=== PATIENT | female | born 1995 | race Caucasian/White ===

== ENCOUNTER 2018-10-28 06:33 | Observation (INO) ==
[2018-10-28] MEDS ORDERED: ceFAZolin 2 GM IV; once IV.SIG PRN (06:59)
[2018-10-28] MEDS ORDERED: Chlorhexidine Gluconate 2% 1 Pack (2 Cloths) TOPICAL ONE (07:04)
[2018-10-28] MEDS ORDERED: Metoprolol Tartrate 25 MG Tablet PO ONE (07:04)
[2018-10-28] MEDS ORDERED: methylPREDNISolone acetate 40 MG/ML VIAL ONE (07:14)
[2018-10-28] MEDS ORDERED: Gelatin Size 100 Topical Foam ONE (07:14)
[2018-10-28] MEDS ORDERED: Bupivacaine/Epinephrine PF Inj 0.5% 30 ML Vial ONE (07:14)
[2018-10-28] MEDS ORDERED: ceFAZolin 1 GM Premix Inj 0 GM/0 ML PIGGYBACK IV.SIG ONE (07:14)
[2018-10-28] MEDS ORDERED: Thrombin Topical Soln 5,000 UNIT Vial TOPICAL ONE (07:21)
[2018-10-28] MEDS ORDERED: fentaNYL Citrate Inj 250 MCG/5 ML Ampul ONE (07:25)
[2018-10-28 07:44] LABS: Baso # (Auto) 0.1 th/mm3 (0.0-0.2); Eos # (Auto) 0.1 th/mm3 (0.0-0.4); Eos % (Auto) 1.8 % (0.0-4.0); Hematocrit 36.4 % (35.0-46.0); Hemoglobin 12.5 gm/dL (11.6-15.3); Lymph # (Auto) 2.8 th/mm3 (1.0-4.8); Lymph % (Auto) 37.3 % (9.0-44.0); Mean Corpuscular HGB Conc 34.3 % (32.0-36.0); Mean Corpuscular Hemoglobin 31.1 pg (27.0-34.0); Mean Corpuscular Volume 90.6 fL (80.0-100.0); Mono # (Auto) 0.6 th/mm3 (0.0-0.9); Mono % (Auto) 7.9 % (0.0-8.0); Neut # (Auto) 3.9 th/mm3 (1.8-7.7); Platelet Count 327 th/mm3 (150-450); Red Blood Count 4.02 mil/mm3 (4.00-5.30); Red Cell Distribution Width 13.5 % (11.6-17.2); White Blood Count 7.5 th/mm3 (4.0-11.0)
[2018-10-28] MEDS ORDERED: Sodium Chlor 0.9% Inj 500 ML IV.SIG SCH (08:00)
[2018-10-28] MEDS ORDERED: Chlorhexidine Gluconate 2% 1 Pack (2 Cloths) TOPICAL SCH (09:00)
[2018-10-28] MEDS ORDERED: Morphine Sulfate Inj 2 MG/ML Vial IV.PUSH PRN (11:49)
[2018-10-28] MEDS ORDERED: Bisacodyl 10 MG Supp RECTAL PRN (11:49)
--- NOTE | 2018-10-28 11:57 | P.OP ---
Preoperative Diagnosis: L3-4, L4-5 disk herniations Postoperative Diagnosis: L3-4, L4-5 disk herniations Date of procedure: 10/28/18 Procedure: L3-4, L4-5 left hemilaminectomy, mesiofacetectomy, foraminotomy, microsurgical resection of the disk herniation Anesthesia: MOOKIE Surgeon: Reggie Muro MD Statistical Programmer Analyst: Maricruz Oneal Pathology: none sent Operation and Findings: INDICATIONS FOR THE SURGICAL PROCEDURE Ms Denton is a 22 year-old female who presented with intractable back pain and clinical evidence of L4, and L5 lower extremity radiculopathy. She was found to have a disk herniations causing significant stenosis with significant mass effect on the neural structures and exiting L4 and L5 nerve roots, which correlated with the clinical symptoms. The patient has failed maximum nonsurgical management including multiple modalities of conservative treatment as well as pain management interventions by an interventional pain specialist. A surgical decompression were indicated as a last resort. The [id number] details of the procedure, indications, alternatives, risks and potential complications were fully discussed with the patient. The patient fully understood. All the questions were answered. No guarantees were given. The patient voiced requesting the procedure and signed informed consents. The patient was offered the alternative of delaying the procedure and continuing with nonsurgical management. DETAILS OF THE SURGICAL PROCEDURE After the induction of general anesthesia, endotracheal intubation was performed. A Torres catheter, bilateral AALIYAH hose and sequential compression devices were placed and kept throughout the procedure. The patient was positioned prone on a Aayush table over a Zackary frame. All pressure points were carefully padded with eggcrate mattress. The eyes were tapped shut after ointment was applied by the anesthesiologist to prevent corneal abrasion. A Deneen hugger was placed over the exposed lower body to maintain control of the core body temperature. The lower lumbar region was prepped and draped in the usual sterile fashion. A spinal needle was placed at L3 for localization and an x-ray performed with a C-arm. A skin incision was made in the midline over the spinous processes L3-L5 with a #10 blade. Small subcutaneous bleeders were controlled with a bipolar and the dissection was carried out through the lumbar fascia exposing the spinous processes. A subperiosteal dissection was performed with a Urias elevator and a Bovie over the left spinous process lamina and facets. A microdiscectomy self- retaining retractor was placed on the incision and an x-ray was obtained with an instrument placed underneath the lamina. At this point in the procedure the operating microscope was draped in the usual sterile fashion and brought to the field. The rest of the surgical procedure was performed using microsurgical dissection technique with exception of the closure. Once the level was confirmed, a decompressive laminectomy was performed at L3-4 , L4-5 over the left side, using the TPS drill with an A 4mm drill bit. A medial facetectomy was performed and the superior free border of the ligamentum flavum was dissected with a ligament dissector and removed with a thin footplate 2 mm Kerrison The medial facetectomy allowed me to expose the L4, and L5 nerve roots, which were identified and followed towards its exit in the foramen. Epidural veins located laterally to the dural sac were coagulated with a bipolar and incised with microscissors. Gentle medial retraction of the dural sac allowed inspection of the disc space. The patient had disc herniation with extrusion at both levels, causing mass effect over the exiting nerve roots. The annulus fibrosus of each disc was coagulated with the bipolar and incised with an 11 blade. The extruded disc was carefully dissected from the surrounding tissue and removed with pituitary forceps. Then, a microdiscectomy was carried out in the standard fashion using straight and up-biting pituitary forceps. A good decompression of the dural sac and nerve root was achieved. The exit of the nerve root was inspected for residual disc fragments and hemostasis was secured with the bipolar. The incision was irrigated with a large amount of saline solution. A Valsalva maneuver failed to show any cerebrospinal fluid leak or bleeding. The decompression was assessed again and found to be satisfactory. The incision was then closed in layers. The fascia was closed with 0 Vicryl sutures in an interrupted fashion. The superficial fascia was closed with 0 Vicryl sutures. The fascia was infiltrated with 0.5% Marcaine with epinephrine 1:100,000 dilution. The subcutaneous tissue was irrigated then closed with 0 Vicryl and 3 -0 Vicryl. The skin was closed with 4-0 running subcuticular Vicryl. Dermabond was applied to the skin. A sterile dressing was applied. At the end of the procedure, the sponge, needle and instrument counts were all correct. Estimated blood loss was less than 50 cc. No blood transfusion was given. No intraoperative complications occurred. The patient received prophylactic antibiotics. The patient was then extubated and transferred to the recovery room in stable condition.
[2018-10-28] MEDS: Sod Chloride 0.9% Inj 1,000 ML IV.CONT SCH ×2 (12:00→12:43)
[2018-10-28] MEDS ORDERED: fentaNYL Citrate Inj 100 MCG/2 ML Ampul ONE (12:24)
[2018-10-28] MEDS ORDERED: *Meperidine Inj 25 MG/ML Vial PERIprocedural Use ONLY ONE (12:34)
[2018-10-28] MEDS ORDERED: Artificial Tears Opth Drops 15 ML Bottle EACH EYE PRN (13:49)
--- NOTE | 2018-10-28 14:57 | XR ---
EXAM DATE: 10/28/2018 1:14 PM EST AGE/SEX: 22 years / Female INDICATIONS: Herniated disk, L3-4, L4-5, microdiscectomy. CLINICAL DATA: This is the patient's initial encounter. Patient reports that signs and symptoms have been present for 1 day and indicates a pain score of Nonresponsive. MEDICAL/SURGICAL HISTORY: None. None. COMPARISON: No prior exams available for comparison. FINDINGS: 2 images have been submitted. The first image has a probe directed towards the L3-4 disc level. The s econd image has the probe directed towards the L4-L5 level. CONCLUSION: 2 lateral lumbar spine images as described above. Electronically signed by: Judd Sierra MD 10/28/2018 2:56 PM EST
[2018-10-28] MEDS ORDERED: Balanced Salt Opth Irrigation 15 APPLIC/15 ML Bottle ONE (17:47)
[2018-10-28] MEDS ORDERED: Tetracaine 0.5% Opth Drops 4 ML Bottle ONE (17:48)
[2018-10-28] MEDS: ceFAZolin 2 GM Premix Inj 2 GM/50 ML PIGGYBACK IV.SIG SCH (17:56)
[2018-10-28] MEDS ORDERED: Balanced Salt Opth Irrigation 15 APPLIC/15 ML Bottle LEFT EYE ONE (18:00)
[2018-10-28] MEDS ORDERED: Tetracaine 0.5% Opth Drops 4 ML Bottle LEFT EYE ONE (18:00)
[2018-10-28] MEDS: Senna/Docusate Sodium 8.6/50 MG Tablet PO SCH (20:20)
[2018-10-29] MEDS: ceFAZolin 2 GM Premix Inj 2 GM/50 ML PIGGYBACK IV.SIG SCH ×2 (01:42→09:25)
[2018-10-29] MEDS: Senna/Docusate Sodium 8.6/50 MG Tablet PO SCH (08:26)
[2018-10-29 09:30] LABS: Bacteria,Urine Rare /hpf; Bilirubin,Urine Negative (Negative); Clarity,Urine Clear (Clear); Color,Urine Straw (Yellw/Straw); Glucose,Urine (UA) Negative (Negative); Leukocyte Esterase,Urine Negative (Negative); Nitrite,Urine Negative (Negative); Specific Gravity,Urine 1.005 (1.002-1.035); Squamous Epithelial Cell,Urine <1 /hpf (0-5)
[2018-10-29] MEDS ORDERED: Erythromycin 0.5% Opth Oint 3.5 GM Tube LEFT EYE PRN (11:25)
--- NOTE | 2018-10-29 11:33 | P.CON ---
History of Present Illness Service: Ophthalmology Reason for Consult: left eye pain Primary Care Provider: No Primary Care Physician History of Present Illness: 22 yo F 1 day s/p back surgery. Ophthalmology consulted due to patient having extreme pain, FB sensation in left eye after waking up from anesthesia yesterday. They gave her some drops and ointment yesterday and patched the left eye shut. Today she states the eye feels much better. No ocular history. PMF - History History Provided By: Patient - Medical History Medical History: Medical History (Last Reviewed 10/28/18 @ 07:11 by Aubree Montelongo) Back pain History of wisdom tooth extraction Racing heart beat Radiculopathy - Tobacco History Second Hand Smoke Exposure: No Smoking Status: Never smoker Tobacco Type: Cigarettes - Alcohol History How Often Do You Have a Drink Containing Alcohol: Monthly or less - Substance Use History Substance History: No History of Abuse - Travel History Recent Travel in the [place] Within the Last 8 Weeks: Yes Recent Travel Out of the Country Within the Last 8 Weeks: No Medications and Allergies Active Medications: Active Medications Hydrocodone Bitart/Acetaminophen ([place] 10/325) 1 tab PO Q4H PRN PRN Reason: PAIN 1-10 Last Admin: 10/29/18 08:25 Dose: 1 tab Al Hydroxide/Mg Hydroxide (Milk Of Magnesia Liq) 30 ml PO Q12H PRN PRN Reason: Mild Constipation Artificial Tears (Tears Naturale Opth Drops) 1 drop EACH EYE Q4H PRN PRN Reason: DRY EYE(S) Last Admin: 10/28/18 16:36 Dose: 1 drop Bisacodyl (Dulcolax Supp) 10 mg RECTAL DAILY PRN PRN Reason: SEVERE CONSITIPATION Chlorhexidine Gluconate (Chlorhexidine 2% Cloth) 1 pack TOPICAL DAILY ERICA Stop: 10/30/18 09:01 Sodium Chloride (Ns Inj) 500 mls @ 30 mls/hr IV.SIG .Q10H ERICA Last Admin: 10/28/18 18:39 Dose: Not Given Lactulose (Lactulose Liq) 30 ml PO DAILY PRN PRN Reason: SEVERE CONSITIPATION Miscellaneous Information (Misc Nursing Information) 1 each OTHER UNSCH PRN PRN Reason: SEE LABEL COMMENTS Stop: 10/29/18 12:10 Morphine Sulfate (Morphine Inj) 2 mg IV.PUSH Q2H PRN PRN Reason: Pain Scale 1 to 5 Last Admin: 10/28/18 20:25 Dose: 2 mg Ondansetron HCl (Zofran Inj) 4 mg IV.PUSH Q8H PRN PRN Reason: NAUSEA OR VOMITING Last Admin: 10/29/18 08:24 Dose: 4 mg Pantoprazole Sodium (Protonix) 40 mg PO DAILY [facility] Last Admin: 10/29/18 08:26 Dose: 40 mg Senna/Docusate Sodium (Claudine-Colace) 1 tab PO BID [facility] Last Admin: 10/29/18 08:26 Dose: 1 tab Sennosides (Senokot) 17.2 mg PO Q12H PRN PRN Reason: Moderate Constipation Allergies Allergy/AdvReac Type Severity Reaction Status Date / Time house dust Allergy Severe Sneezing Verified 10/28/18 07:11 prochlorperazine Allergy Severe Restlessnes Verified 10/28/18 07:11 [From Compazine] s promethazine [From Phenergan] Allergy Severe Restlessnes Verified 10/28/18 07:11 s Home Medications Medication Instructions Recorded Confirmed Type No Known Home Medications 10/24/18 10/28/18 History Physical Exam Vital signs: Vital Signs 10/28/18 12:11 10/28/18 12:15 10/28/18 12:30 Temperature 98 F Pulse Rate 103 H 95 H 93 H Respiratory Rate 20 15 13 Blood Pressure 134/74 129/75 126/65 Pulse Oximetry 97 96 96 10/28/18 12:45 10/28/18 12:54 10/28/18 13:00 Temperature 98.2 F Pulse Rate 92 H 93 H Respiratory Rate 14 15 Blood Pressure 126/67 119/64 Pulse Oximetry 97 96 97 10/28/18 13:09 10/28/18 15:10 10/28/18 19:05 Temperature 97.9 F 97.9 F Pulse Rate 92 H 92 H 90 Respiratory Rate 16 16 18 Blood Pressure 128/69 123/72 123/72 Pulse Oximetry 97 96 97 10/28/18 23:50 10/29/18 04:00 10/29/18 08:00 Temperature 98.3 F 98.9 F 97.9 F Pulse Rate 89 87 82 Respiratory Rate 17 17 18 Blood Pressure 123/76 110/65 124/75 Pulse Oximetry 97 96 99 Intake & Output 10/28/18 10/29/18 10/29/18 18:59 06:59 18:59 Intake Total 1700 / 1700 1466 / 1466 Output Total 460 / 460 650 / 650 Balance 1240 / 1240 816 / 816 Weight 59.1 kg 59.1 kg Intake: IV 100 / 100 746 / 746 NS Inj 1,000 ML @ 100 mls/hr IV 696 / 696 .CONT .Q10H ERICA Rx#:[id number] Ancef 2 GM Premix Inj 2 gm In 100 / 100 50 / 50 50 ml @ 100 mls/hr IV.SIG Q8H ERICA Rx#:[id number] Oral 720 / 720 Anesthesia Amount 1600 / 1600 Output: Urine 650 / 650 Estimated Blood Loss 60 / 60 Urine Amount (Catheter) 400 / 400 Indwelling Urethral Catheter 400 / 400 Other: Date of Last Bowel Movement 10/28/18 # Bowel Movements 0 Weight On Admission 59.1 kg - Detailed Eye Exam Comments: Va cc at near OD 20/20, OS 20/20 EOM full OU, no diplopia CVF full OU Pupils 2-1 no APD OU IOP normal to palpation OU Anterior exam OD - normal eyelid, C/S W&Q, K clear, AC deep, pupil round, lens clear OS - normal eyelid, C/S W&Q, K clear, AC deep, pupil round, lens clear - Urinary Catheter Management Indwelling Urethral Catheter Cath placed during this visit: yes, but has since been removed by the nurse Reason for continuing: Not indwelling catheter Insertion date: 10/28/18 Insertion time: 09:40 Removal date: 10/28/18 Removal time: 12:08 Results - Labs CBC & Chem 7: 10/28/18 07:30 Labs: Laboratory Results - last 24 hr 10/29/18 08:40 Urine Color Straw Urine Clarity Clear Urine pH 6.0 Ur Specific [place] 1.005 Urine Protein Negative Urine Glucose (UA) Negative Urine Ketones Negative Urine Occult Blood Negative Urine Nitrate Negative Urine Bilirubin Negative Urine Urobilinogen Less than 2 Ur Leukocyte Esterase Negative Urine RBC Less than 1 Urine WBC 1 Ur Squamous Epith Cells <1 Urine Bacteria Rare H Micro UA Comment Culture not ind Ur Microscopic Review Not Reportable Urine Culture Comments Culture not ind - Imaging Impressions Lumbar Spine X-Ray 10/28/18 00:00 CONCLUSION: 2 lateral lumbar spine images as described above. Assessment and Plan - Assessment (1) Corneal abrasion, left Code(s): S05.02XA - Injury of conjunctiva and corneal abrasion without foreign body, left eye, initial encounter Status: Acute Plan: Most likely cause of pain OS. Has healed. Erythromycin ointment PRN irritation.
--- NOTE | 2018-10-29 12:56 | P.DS ---
Date of admission: 10/28/18 12:01 Primary care physician: No Primary Care Physician Brief History from admission: Ms Denton is a 22 year-old female who presented with intractable back pain and clinical evidence of L4, and L5 lower extremity radiculopathy. She was found to have a disk herniations causing significant stenosis with significant mass effect on the neural structures and exiting L4 and L5 nerve roots, which correlated with the clinical symptoms. The patient has failed maximum nonsurgical management including multiple modalities of conservative treatment as well as pain management interventions by an interventional pain specialist. A surgical decompression were indicated as a last resort. DS: Medications - Discharge Medications Prescriptions: ibuprofen [Wal-Profen] 600 mg PO TID PRN #90 tab PRN Reason: Pain ondansetron HCl [Zofran] 4 mg PO BID PRN 3 Days #6 tab PRN Reason: Abdominal Distention tramadol 50 mg PO Q4-6H PRN 3 Days #12 tab PRN Reason: Pain DS: Summary Hospital Course: Ms. Denton underwent a L3-4, L4-5 left hemilaminectomy, mesiofacetectomy, foraminotomy, microsurgical resection of the disk herniation for L3-4, L4-5 disk herniations on 10/28/18. She developed severe eye pain following waking up from anesthesias which improved. Ophthalmology evaluation most likely from corneal abrasion, which has healed, recommended Erythromycin ointment PRN irritation. - Time Spent with Patient Total time spent providing and/or coordinating discharge services: Less than 30 minutes - Quality: VTE Deep Vein Thrombosis/Pulmonary Embolism Present on Admission: No Exam Vital signs: Vital Signs 10/28/18 12:54 10/28/18 13:00 10/28/18 13:09 Temperature 98.2 F Pulse Rate 93 H 92 H Respiratory Rate 15 16 Blood Pressure 119/64 128/69 Pulse Oximetry 96 97 97 10/28/18 15:10 10/28/18 19:05 10/28/18 23:50 Temperature 97.9 F 97.9 F 98.3 F Pulse Rate 92 H 90 89 Respiratory Rate 16 18 17 Blood Pressure 123/72 123/72 123/76 Pulse Oximetry 96 97 97 10/29/18 04:00 10/29/18 08:00 10/29/18 12:00 Temperature 98.9 F 97.9 F 97.6 F Pulse Rate 87 82 90 Respiratory Rate 17 18 17 Blood Pressure 110/65 124/75 110/55 L Pulse Oximetry 96 99 97 Intake & Output 10/28/18 10/29/18 10/29/18 18:59 06:59 18:59 Intake Total 1700 / 1700 1466 / 1466 Output Total 460 / 460 650 / 650 Balance 1240 / 1240 816 / 816 Weight 59.1 kg 59.1 kg Intake: IV 100 / 100 746 / 746 NS Inj 1,000 ML @ 100 mls/hr IV 696 / 696 .CONT .Q10H ERICA Rx#:[id number] Ancef 2 GM Premix Inj 2 gm In 100 / 100 50 / 50 50 ml @ 100 mls/hr IV.SIG Q8H ERICA Rx#:[id number] Oral 720 / 720 Anesthesia Amount 1600 / 1600 Output: Urine 650 / 650 Estimated Blood Loss 60 / 60 Urine Amount (Catheter) 400 / 400 Indwelling Urethral Catheter 400 / 400 Other: Date of Last Bowel Movement 10/28/18 # Bowel Movements 0 Weight On Admission 59.1 kg Results Procedures completed during hospitalization: L3-4, L4-5 left hemilaminectomy, mesiofacetectomy, foraminotomy, microsurgical resection of the disk herniation for L3-4, L4-5 disk herniations Labs on day of discharge: Labs from last 24 hours 10/29/18 08:40 Urine Color Straw Urine Clarity Clear Urine pH 6.0 Ur Specific [place] 1.005 Urine Protein Negative Urine Glucose (UA) Negative Urine Ketones Negative Urine Occult Blood Negative Urine Nitrate Negative Urine Bilirubin Negative Urine Urobilinogen Less than 2 Ur Leukocyte Esterase Negative Urine RBC Less than 1 Urine WBC 1 Ur Squamous Epith Cells <1 Urine Bacteria Rare H Micro UA Comment Culture not ind Ur Microscopic Review Not Reportable Urine Culture Comments Culture not ind - Impressions ITS Impressions Lumbar Spine X-Ray 10/28/18 00:00 CONCLUSION: 2 lateral lumbar spine images as described above. Discharge Plan - Discharge Order Discharge Orders: Discharge Order (Routine); Ordered 10/29/18 Ordered By: Estefani Echavarria - Physicians Team Primary Care Provider: Primary Care Physici,No Attending Provider: Reggie Muro Other Providers: Corazon Jane MD - Rxs /Orders / Referrals /Forms Prescriptions: New ibuprofen [Wal-Profen] 200 mg Tablet 600 mg PO TID PRN (Reason: Pain) Qty: 90 RF: 0 ondansetron HCl [Zofran] 4 mg Tablet 4 mg PO BID PRN (Reason: Abdominal Distention) 3 Days Qty: 6 RF: 0 tramadol 50 mg Tablet 50 mg PO Q4-6H PRN (Reason: Pain) 3 Days Qty: 12 RF: 0 Ambulatory Orders / Order Sets / DME: Walker With Front Wheels (1 each) (Routine) Location: Determined by Patient Ordered By: Estefani Echavarria Referrals: Primary Care Alicia Bird [Primary Care Provider] - See Instructions - Discharge Instructions Patient Printed Instructions: Laminectomy (DC), Lumbar Corset (DC) Additional Instructions: May Shower as directed No dressing changes as n per Surgeon Brace when out of bed - Post Discharge Care Plan Care Plan Goals: Your Health Problems: Goals to Promote Your Health: * To prevent worsening of your condition * To maintain your health at the optimal level Directions to Meet Your Goals: * Take your medications as prescribed * Follow your dietary instruction * Follow activity as directed * Keep your appointments as scheduled * Take your immunizations and boosters as scheduled * If your symptoms worsen call your PCP * If no PCP go to Urgent Care or Emergency Room Smoking is dangerous to your health. Avoid second hand smoke. You may reach the 24-hour crisis hotline for domestic abuse at .
== END 2018-10-29 14:21 | disposition home or self-care (01) ==
LOC: HSDC 06:33 → HSDI 06:33 → N06 13:22
PROVIDERS: ADMIT Neurological Surgery; ATTEND Neurological Surgery